=== PATIENT | male | born 1965 | race Caucasian/White ===

== ENCOUNTER 2016-10-05 16:25 | Emergency (ER) | payer OTHER, MEDICAID ==
[~2016-10-05] VITALS: Ht 188 cm; Wt 100.0 kg
[2016-10-05] MEDS ORDERED: LEVO25TA4 PO (17:00)
[2016-10-05] MEDS ORDERED: METF500T4 PO (17:00)
[2016-10-05] MEDS ORDERED: ATEN25 PO (17:00)
[2016-10-05] MEDS ORDERED: QUET25TA PO (17:00)
[2016-10-05] MEDS ORDERED: DIVA125T PO (17:00)
[2016-10-05 17:36] LABS: BASOPHILS % (AUTO) 0.5 % (0.0-2.0); HEMATOCRIT 41.5 % (41-53); HEMOGLOBIN 14.6 g/dL (13.5-17.5); LYMPHOCYTES # (AUTO) 1.7 K/uL (1.0-4.8); LYMPHOCYTES % (AUTO) 28.2 % (22.0-44.0); MEAN CORPUSCULAR HGB CONC 35.1 G/dL (31.0-37.0); MEAN CORPUSCULAR VOLUME 94 fL (80-100); MONOCYTES # (AUTO) 0.5 K/uL (0.1-1.0); MONOCYTES % (AUTO) 8.7 % (2.0-9.0); NEUTROPHILS # (AUTO) 3.7 K/uL (1.8-7.7); NEUTROPHILS % (AUTO) 60.6 % (40.0-70.0); PLATELET COUNT (AUTO) 181 K/uL (150-450); RED BLOOD CELL COUNT(AUTO) 4.41 MIL/uL (4.50-5.90); RED CELL DISTRIBUTION WIDTH 13.5 % (11.5-14.5)
[2016-10-05 17:45] LABS: ANION GAP 10 mmol/L (8-16); CARBON DIOXIDE 25 mmol/L (22-29); CHLORIDE 94 mmol/L (98-107); CREATININE 0.88 mg/dL (0.60-1.30); GLOMERULAR FILTR. RATE CALC > 60 mL/min (>60); POTASSIUM 4.2 mmol/L (3.5-5.1); SODIUM SERUM 129 mmol/L (136-145); UREA NITROGEN, BLOOD 10 mg/dL (7-18)
[2016-10-05 17:51] LABS: ALANINE AMINOTRANSFERASE 13 U/L (12-78); ALBUMIN 3.5 g/dL (3.4-5.0); ASPARTATE AMINOTRANSFERASE 11 U/L (15-37); BILIRUBIN,TOTAL 0.4 mg/dL (0.1-1.0); TOTAL PROTEIN, SERUM 6.8 g/dL (6.4-8.2)
[2016-10-05] MEDS ORDERED: SODIUM CHLORIDE 0.9% 1,000 ML IV ONE (18:00)
[2016-10-05 19:13] VITALS: BP 131/77
== END 2016-10-05 20:51 | disposition home or self-care (01) ==
LOC: EMS 16:29
DX: F31.9 Bipolar disorder, unspecified (principal); M25.551 Pain in right hip; G89.29 Other chronic pain; E11.9 Type 2 diabetes mellitus without complications; I10 Essential (primary) hypertension; E03.9 Hypothyroidism, unspecified; Z88.8 Allergy status to other drugs, medicaments and biological substances
CPT/HCPCS: 36415; 80053; 83690; 84484; 85025; 96360; 99285; G0480; J7030

== ENCOUNTER 2017-04-17 11:12 | Inpatient (IN) | payer OTHER, MEDICAID ==
[~2017-04-17] VITALS: Ht 188 cm; Wt 89.3 kg
[~2017-04-17 11:12] MED LIST: ATEN25TA PO; DIVA125T PO; LEVO25TA4 PO; METF500T4 PO; QUET25TA PO
[2017-04-17] MEDS ORDERED: LISI-661 PO (11:34)
[2017-04-17] MEDS ORDERED: BENZ2TAB10 PO (11:34)
[2017-04-17] MEDS ORDERED: OLAN10TA3 PO (11:34)
[2017-04-17] MEDS ORDERED: PALI6 PO (11:34)
[2017-04-17] MEDS ORDERED: [UNRECOGNIZED DRUG - CODE] TP (11:34)
[2017-04-17 11:54] LABS: BASOPHILS # (AUTO) 0.03 K/uL (0.00-0.20); BASOPHILS % (AUTO) 0.6 % (0.0-2.0); EOSINOPHILS # (AUTO) 0.03 K/uL (0.00-0.70); EOSINOPHILS % (AUTO) 0.46 % (1.0-6.0); HEMATOCRIT 41.3 % (41-53); HEMOGLOBIN 14.4 g/dL (13.5-17.5); LYMPHOCYTES # (AUTO) 0.9 K/uL (1.0-4.8); LYMPHOCYTES % (AUTO) 15.5 % (22.0-44.0); MEAN CORPUSCULAR HEMOGLOBIN 33.6 pg (26.0-34.0); MEAN CORPUSCULAR HGB CONC 34.9 G/dL (31.0-37.0); MEAN CORPUSCULAR VOLUME 96 fL (80-100); MONOCYTES # (AUTO) 0.5 K/uL (0.1-1.0); MONOCYTES % (AUTO) 8.1 % (2.0-9.0); NEUTROPHILS # (AUTO) 4.3 K/uL (1.8-7.7); NEUTROPHILS % (AUTO) 75.4 % (40.0-70.0); PLATELET COUNT (AUTO) 136 K/uL (150-450); RED BLOOD CELL COUNT(AUTO) 4.28 MIL/uL (4.50-5.90); RED CELL DISTRIBUTION WIDTH 13.3 % (11.5-14.5)
[2017-04-17 12:09] LABS: ALANINE AMINOTRANSFERASE 19 U/L (12-78); ALBUMIN 3.6 g/dL (3.4-5.0); ALKALINE PHOSPHATASE 58 U/L (46-116); ANION GAP 10 mmol/L (8-16); ASPARTATE AMINOTRANSFERASE 21 U/L (15-37); BILIRUBIN,TOTAL 0.7 mg/dL (0.1-1.0); CALCIUM, TOTAL 8.8 mg/dL (8.8-10.5); CARBON DIOXIDE 24 mmol/L (22-29); CHLORIDE 91 mmol/L (98-107); CREATININE 0.62 mg/dL (0.60-1.30); GLOMERULAR FILTR. RATE CALC > 60 mL/min (>60); GLUCOSE,RANDOM 126 mg/dL (70-110); POTASSIUM 4.2 mmol/L (3.5-5.1); SODIUM SERUM 125 mmol/L (136-145); TOTAL PROTEIN, SERUM 7.3 g/dL (6.4-8.2); UREA NITROGEN, BLOOD 10 mg/dL (7-18)
[2017-04-17 12:24] LABS: AMPHET/METH SCREEN,URINE NEGATIVE (NEGATIVE); BARBITURATE SCREEN, URINE NEGATIVE (NEGATIVE); BENZODIAZEPINES SCREEN,URINE NEGATIVE (NEGATIVE); CANNABINOID SCREEN,URINE NEGATIVE (NEGATIVE); COCAINE SCREEN,URINE NEGATIVE (NEGATIVE); METHADONE SCREEN, URINE NEGATIVE (NEGATIVE); OPIATE SCREEN,URINE NEGATIVE (NEGATIVE)
[2017-04-17 12:25] LABS: PHENCYCLIDINE SCREEN,URINE NEGATIVE (NEGATIVE)
[2017-04-17] MEDS ORDERED: SODIUM CHLORIDE 1 GM TABLET PO ONE (13:00)
[2017-04-17] MEDS ORDERED: ZOLPIDEM TARTRATE 10 MG TABLET PO PRN (14:00)
[2017-04-17] MEDS ORDERED: LORazepam 2 MG TABLET PO PRN (14:00)
[2017-04-17] MEDS ORDERED: OLANZapine 5 MG RAPDIS TABLET PO PRN (14:00)
[2017-04-17] MEDS ORDERED: LORazepam 2 MG TABLET PO ONE (14:15)
[2017-04-17] MEDS ORDERED: OLANZapine 5 MG TABLET PO ONE (14:15)
[2017-04-17 16:00] VITALS: BP 123/73
[2017-04-17 17:12] LABS: GLUCOMETER DEV NAME(LOC) 3EX 1; GLUCOSE,POINT OF CARE 151 MG/DL (70-110)
[2017-04-17] MEDS: OLANZapine 10 MG TABLET PO SCH (20:50)
[2017-04-17] MEDS ORDERED: BENZTROPINE MESYLATE 2 MG TABLET PO SCH (21:00)
[2017-04-17] MEDS: BENZTROPINE MESYLATE 1 MG TABLET PO SCH (21:01)
[2017-04-18 06:30] VITALS: BP 147/97
[2017-04-18 07:00] LABS: CHOL/HDL RATIO 3.3 (4.2-7.3)
[2017-04-18 08:44] VITALS: BP 126/83
[2017-04-18] MEDS: DIVALPROEX SODIUM 250 MG ER TABLET PO SCH ×2 (09:13→17:08)
[2017-04-18] MEDS ORDERED: ACETAMINOPHEN 325 MG TABLET PO PRN (10:00)
[2017-04-18] MEDS ORDERED: ALBUTEROL SULFATE HFA 90 MCG/PUFF 8 GM INHALER IH PRN (10:00)
[2017-04-18] MEDS ORDERED: PETROLATUM,WHITE 71 GM JELLY TP PRN (10:00)
[2017-04-18] MEDS ORDERED: MAG HYDROX/AL HYDROX/SIMETH ES 30 ML SUSPENSION UDCUP PO PRN (10:00)
[2017-04-18] MEDS ORDERED: ONDANSETRON HCL 4 MG TABLET PO PRN (10:00)
[2017-04-18] MEDS ORDERED: LOPERAMIDE HCL 2 MG CAPSULE PO PRN (10:00)
[2017-04-18] MEDS ORDERED: CloNIDine HCL 0.1 MG TABLET PO PRN (10:00)
[2017-04-18] MEDS ORDERED: MAGNESIUM HYDROXIDE SUSPENSION 30 ML UDCUP PO PRN (10:00)
[2017-04-18] MEDS ORDERED: DEXTROSE 50%-WATER 25 GM/50 ML SYRINGE IVP PRN (10:00)
[2017-04-18] MEDS ORDERED: BACITRACIN 28.4 GM OINTMENT TP PRN (10:00)
[2017-04-18] MEDS ORDERED: IBUPROFEN 600 MG TABLET PO PRN (10:00)
[2017-04-18] MEDS ORDERED: BENZOCAINE/MENTHOL LOZENGE MM PRN (10:00)
[2017-04-18] MEDS ORDERED: BENZOCAINE/MENTHOL LOZENGE [8 LOZENGES/PACKET] MM PRN (10:04)
[2017-04-18 11:57] LABS: GLUCOMETER DEV NAME(LOC) 3EX 1; GLUCOSE,POINT OF CARE 96 MG/DL (70-110)
[2017-04-18] MEDS: SODIUM CHLORIDE 1 GM TABLET PO SCH ×2 (12:48→17:08)
[2017-04-18 16:00] VITALS: BP 139/67
[2017-04-18 17:02] LABS: GLUCOMETER DEV NAME(LOC) 3EX 1; GLUCOSE,POINT OF CARE 136 MG/DL (70-110)
[2017-04-18] MEDS: INSULIN ASPART 100 UNITS/ML SQ PRN (17:07)
[2017-04-18] MEDS: MetFORMIN HCL 500 MG TABLET PO SCH (17:19)
[2017-04-18] MEDS: BENZTROPINE MESYLATE 1 MG TABLET PO SCH (20:50)
[2017-04-18] MEDS: OLANZapine 10 MG TABLET PO SCH (20:51)
[2017-04-19 05:32] LABS: GLUCOMETER DEV NAME(LOC) 3EI B; GLUCOSE,POINT OF CARE 104 MG/DL (70-110)
[2017-04-19 06:04] VITALS: BP 126/83
[2017-04-19 07:01] LABS: HEMOGLOBIN A1C 5.3 % (4.5-6.2)
[2017-04-19 07:10] LABS: POTASSIUM 4.3 mmol/L (3.5-5.1); THYROID STIMULATING HORMONE 12.73 uIU/mL (0.36-3.74)
[2017-04-19] MEDS: LEVOTHYROXINE SODIUM 25 MCG TABLET PO SCH (07:10)
[2017-04-19] MEDS: MetFORMIN HCL 500 MG TABLET PO SCH ×2 (07:10→17:41)
[2017-04-19 08:56] VITALS: BP 145/87
[2017-04-19] MEDS: DOCUSATE SODIUM 100 MG CAPSULE PO SCH (09:28)
[2017-04-19] MEDS: SODIUM CHLORIDE 1 GM TABLET PO SCH ×3 (09:29→16:46)
[2017-04-19] MEDS: LISINOPRIL 10 MG TABLET PO SCH (09:29)
[2017-04-19] MEDS: DIVALPROEX SODIUM 250 MG ER TABLET PO SCH ×2 (09:29→16:46)
[2017-04-19] MEDS: OMEPRAZOLE 20 MG CAPSULE PO SCH (09:32)
[2017-04-19] MEDS ORDERED: SODIUM CHLORIDE 1 GM TABLET PO ONE (11:15)
[2017-04-19] MEDS: INSULIN ASPART 100 UNITS/ML SQ PRN (11:50)
[2017-04-19 11:53] LABS: GLUCOMETER DEV NAME(LOC) 3EX 1; GLUCOSE,POINT OF CARE 88 MG/DL (70-110)
[2017-04-19 16:52] LABS: GLUCOMETER DEV NAME(LOC) 3EX 1; GLUCOSE,POINT OF CARE 111 MG/DL (70-110)
[2017-04-19 17:00] VITALS: BP 136/82
[2017-04-19] MEDS: OLANZapine 10 MG TABLET PO SCH (20:29)
[2017-04-19] MEDS: BENZTROPINE MESYLATE 1 MG TABLET PO SCH (20:31)
[2017-04-19 20:33] LABS: GLUCOMETER DEV NAME(LOC) 3EX 1; GLUCOSE,POINT OF CARE 130 MG/DL (70-110)
[2017-04-20 06:09] LABS: GLUCOMETER DEV NAME(LOC) 3EI B; GLUCOSE,POINT OF CARE 116 MG/DL (70-110)
[2017-04-20 06:25] VITALS: BP 127/76
[2017-04-20] MEDS: LEVOTHYROXINE SODIUM 25 MCG TABLET PO SCH (06:51)
[2017-04-20 06:58] LABS: SODIUM SERUM 128 mmol/L (136-145); VALPROIC ACID 25 mcg/mL (50-100)
[2017-04-20] MEDS: INSULIN ASPART 100 UNITS/ML SQ PRN (07:02)
[2017-04-20] MEDS: MetFORMIN HCL 500 MG TABLET PO SCH ×2 (07:03→17:43)
[2017-04-20] MEDS: DOCUSATE SODIUM 100 MG CAPSULE PO SCH (10:02)
[2017-04-20] MEDS: DIVALPROEX SODIUM 250 MG ER TABLET PO SCH ×2 (10:03→16:40)
[2017-04-20] MEDS: LISINOPRIL 10 MG TABLET PO SCH (10:03)
[2017-04-20] MEDS: OMEPRAZOLE 20 MG CAPSULE PO SCH (10:03)
[2017-04-20] MEDS: CHOLECALCIFEROL (VIT D3) 1,000 UNITS TABLET PO SCH (10:03)
[2017-04-20] MEDS: SODIUM CHLORIDE 1 GM TABLET PO SCH ×3 (10:04→16:40)
[2017-04-20 10:21] VITALS: BP 128/89
[2017-04-20 11:23] LABS: GLUCOMETER DEV NAME(LOC) 3EX 1; GLUCOSE,POINT OF CARE 112 MG/DL (70-110)
[2017-04-20 16:47] LABS: GLUCOMETER DEV NAME(LOC) 3EX 1; GLUCOSE,POINT OF CARE 92 MG/DL (70-110)
[2017-04-20 17:38] VITALS: BP 147/93
[2017-04-20] MEDS: BENZTROPINE MESYLATE 1 MG TABLET PO SCH (20:28)
[2017-04-20] MEDS: OLANZapine 10 MG TABLET PO SCH (20:28)
[2017-04-20 20:42] LABS: GLUCOMETER DEV NAME(LOC) 3EX 1; GLUCOSE,POINT OF CARE 108 MG/DL (70-110)
[2017-04-21 05:52] VITALS: BP 129/82
[2017-04-21 06:08] LABS: GLUCOMETER DEV NAME(LOC) 3EI B; GLUCOSE,POINT OF CARE 98 MG/DL (70-110)
[2017-04-21] MEDS: LEVOTHYROXINE SODIUM 25 MCG TABLET PO SCH (07:05)
[2017-04-21] MEDS: MetFORMIN HCL 500 MG TABLET PO SCH ×2 (07:05→17:35)
[2017-04-21 08:52] VITALS: BP 125/80
[2017-04-21] MEDS: CHOLECALCIFEROL (VIT D3) 1,000 UNITS TABLET PO SCH (09:00)
[2017-04-21] MEDS: OMEPRAZOLE 20 MG CAPSULE PO SCH (09:00)
[2017-04-21] MEDS: LISINOPRIL 10 MG TABLET PO SCH (09:00)
[2017-04-21] MEDS: DIVALPROEX SODIUM 250 MG ER TABLET PO SCH ×2 (09:00→16:33)
[2017-04-21] MEDS: SODIUM CHLORIDE 1 GM TABLET PO SCH ×3 (09:00→16:33)
[2017-04-21] MEDS: DOCUSATE SODIUM 100 MG CAPSULE PO SCH (09:01)
[2017-04-21 11:32] LABS: GLUCOMETER DEV NAME(LOC) 3EX 1; GLUCOSE,POINT OF CARE 104 MG/DL (70-110)
[2017-04-21 16:37] LABS: GLUCOMETER DEV NAME(LOC) 3EX 1; GLUCOSE,POINT OF CARE 111 MG/DL (70-110)
[2017-04-21 19:07] VITALS: BP 146/71
[2017-04-21] MEDS: BENZTROPINE MESYLATE 1 MG TABLET PO SCH (20:07)
[2017-04-21] MEDS: OLANZapine 10 MG TABLET PO SCH (20:07)
[2017-04-21 20:12] LABS: GLUCOMETER DEV NAME(LOC) 3EX 1; GLUCOSE,POINT OF CARE 140 MG/DL (70-110)
[2017-04-22 05:43] LABS: GLUCOMETER DEV NAME(LOC) 3EI B; GLUCOSE,POINT OF CARE 99 MG/DL (70-110)
[2017-04-22] MEDS: MetFORMIN HCL 500 MG TABLET PO SCH ×2 (06:55→16:37)
[2017-04-22] MEDS: LEVOTHYROXINE SODIUM 25 MCG TABLET PO SCH (06:55)
[2017-04-22 08:00] VITALS: BP 120/88
[2017-04-22] MEDS: CHOLECALCIFEROL (VIT D3) 1,000 UNITS TABLET PO SCH (08:58)
[2017-04-22] MEDS: SODIUM CHLORIDE 1 GM TABLET PO SCH ×3 (08:58→16:37)
[2017-04-22] MEDS: DOCUSATE SODIUM 100 MG CAPSULE PO SCH (08:58)
[2017-04-22] MEDS: LISINOPRIL 10 MG TABLET PO SCH (08:58)
[2017-04-22] MEDS: DIVALPROEX SODIUM 250 MG ER TABLET PO SCH ×2 (08:58→16:37)
[2017-04-22] MEDS: OMEPRAZOLE 20 MG CAPSULE PO SCH (08:59)
[2017-04-22 11:38] LABS: GLUCOMETER DEV NAME(LOC) 3EX 1; GLUCOSE,POINT OF CARE 92 MG/DL (70-110)
[2017-04-22 16:58] LABS: GLUCOMETER DEV NAME(LOC) 3EX 1; GLUCOSE,POINT OF CARE 125 MG/DL (70-110)
[2017-04-22 17:02] VITALS: BP 135/88
[2017-04-22 20:48] LABS: GLUCOMETER DEV NAME(LOC) 3EX 1; GLUCOSE,POINT OF CARE 150 MG/DL (70-110)
[2017-04-22] MEDS: OLANZapine 10 MG TABLET PO SCH (21:08)
[2017-04-22] MEDS: BENZTROPINE MESYLATE 1 MG TABLET PO SCH (21:08)
[2017-04-23 02:54] VITALS: BP 130/84
[2017-04-23 06:04] LABS: GLUCOMETER DEV NAME(LOC) 3EX 1; GLUCOSE,POINT OF CARE 103 MG/DL (70-110)
[2017-04-23] MEDS: MetFORMIN HCL 500 MG TABLET PO SCH ×2 (07:07→17:28)
[2017-04-23] MEDS: LEVOTHYROXINE SODIUM 100 MCG TABLET PO SCH (07:07)
[2017-04-23 07:12] LABS: THYROID STIMULATING HORMONE 9.79 uIU/mL (0.36-3.74)
[2017-04-23] MEDS: OMEPRAZOLE 20 MG CAPSULE PO SCH (08:22)
[2017-04-23] MEDS: SODIUM CHLORIDE 1 GM TABLET PO SCH ×3 (08:22→16:14)
[2017-04-23] MEDS: DOCUSATE SODIUM 100 MG CAPSULE PO SCH (08:22)
[2017-04-23] MEDS: CHOLECALCIFEROL (VIT D3) 1,000 UNITS TABLET PO SCH (08:22)
[2017-04-23] MEDS: DIVALPROEX SODIUM 250 MG ER TABLET PO SCH ×2 (08:23→16:14)
[2017-04-23] MEDS: LISINOPRIL 10 MG TABLET PO SCH (08:24)
[2017-04-23 09:00] VITALS: BP 166/90
[2017-04-23 11:38] LABS: GLUCOMETER DEV NAME(LOC) 3EX 1; GLUCOSE,POINT OF CARE 98 MG/DL (70-110)
[2017-04-23] MEDS: INSULIN ASPART 100 UNITS/ML SQ PRN (17:07)
[2017-04-23 17:23] LABS: GLUCOMETER DEV NAME(LOC) 3EX 1; GLUCOSE,POINT OF CARE 170 MG/DL (70-110)
[2017-04-23 19:32] VITALS: BP 134/76
[2017-04-23] MEDS: OLANZapine 10 MG TABLET PO SCH (20:24)
[2017-04-23] MEDS: BENZTROPINE MESYLATE 1 MG TABLET PO SCH (20:24)
[2017-04-23 21:23] LABS: GLUCOMETER DEV NAME(LOC) 3EX 1; GLUCOSE,POINT OF CARE 134 MG/DL (70-110)
[2017-04-24 05:33] LABS: GLUCOMETER DEV NAME(LOC) 3EI B; GLUCOSE,POINT OF CARE 99 MG/DL (70-110)
[2017-04-24] MEDS: MetFORMIN HCL 500 MG TABLET PO SCH ×2 (07:06→16:46)
[2017-04-24] MEDS: LEVOTHYROXINE SODIUM 100 MCG TABLET PO SCH (07:06)
[2017-04-24] MEDS: DIVALPROEX SODIUM 250 MG ER TABLET PO SCH ×2 (08:22→16:46)
[2017-04-24] MEDS: DOCUSATE SODIUM 100 MG CAPSULE PO SCH (08:22)
[2017-04-24] MEDS: SODIUM CHLORIDE 1 GM TABLET PO SCH ×3 (08:22→16:46)
[2017-04-24] MEDS: OMEPRAZOLE 20 MG CAPSULE PO SCH (08:23)
[2017-04-24] MEDS: LISINOPRIL 10 MG TABLET PO SCH (08:23)
[2017-04-24] MEDS: CHOLECALCIFEROL (VIT D3) 1,000 UNITS TABLET PO SCH (08:23)
[2017-04-24 09:15] VITALS: BP 104/76
[2017-04-24 16:53] LABS: GLUCOMETER DEV NAME(LOC) 3EX 1; GLUCOSE,POINT OF CARE 152 MG/DL (70-110)
[2017-04-24 16:55] VITALS: BP 142/88
[2017-04-24] MEDS: INSULIN ASPART 100 UNITS/ML SQ PRN (18:01)
[2017-04-24] MEDS: OLANZapine 10 MG TABLET PO SCH (20:31)
[2017-04-24] MEDS: BENZTROPINE MESYLATE 1 MG TABLET PO SCH (20:31)
[2017-04-25 05:28] LABS: GLUCOMETER DEV NAME(LOC) 3EI B; GLUCOSE,POINT OF CARE 89 MG/DL (70-110)
[2017-04-25] MEDS: MetFORMIN HCL 500 MG TABLET PO SCH ×2 (07:03→16:50)
[2017-04-25] MEDS: LEVOTHYROXINE SODIUM 100 MCG TABLET PO SCH (07:03)
[2017-04-25 08:10] VITALS: BP 132/79
[2017-04-25] MEDS: CHOLECALCIFEROL (VIT D3) 1,000 UNITS TABLET PO SCH (08:45)
[2017-04-25] MEDS: DIVALPROEX SODIUM 250 MG ER TABLET PO SCH ×2 (08:45→16:50)
[2017-04-25] MEDS: DOCUSATE SODIUM 100 MG CAPSULE PO SCH (08:45)
[2017-04-25] MEDS: OMEPRAZOLE 20 MG CAPSULE PO SCH (08:45)
[2017-04-25] MEDS: SODIUM CHLORIDE 1 GM TABLET PO SCH ×3 (08:45→16:50)
[2017-04-25] MEDS: LISINOPRIL 10 MG TABLET PO SCH (08:46)
[2017-04-25 16:20] VITALS: BP 144/88
[2017-04-25 17:02] LABS: GLUCOMETER DEV NAME(LOC) 3EX 1; GLUCOSE,POINT OF CARE 129 MG/DL (70-110)
[2017-04-25] MEDS: OLANZapine 10 MG TABLET PO SCH (20:28)
[2017-04-25] MEDS: BENZTROPINE MESYLATE 1 MG TABLET PO SCH (20:28)
[2017-04-25 20:38] LABS: GLUCOMETER DEV NAME(LOC) 3EX 1; GLUCOSE,POINT OF CARE 121 MG/DL (70-110)
[2017-04-26 06:33] LABS: BASOPHILS % (AUTO) 0.6 % (0.0-2.0); EOSINOPHILS % (AUTO) 2.9 % (1.0-6.0); HEMATOCRIT 38.5 % (41-53); HEMOGLOBIN 13.7 g/dL (13.5-17.5); LYMPHOCYTES # (AUTO) 1.4 K/uL (1.0-4.8); LYMPHOCYTES % (AUTO) 25.2 % (22.0-44.0); MEAN CORPUSCULAR HEMOGLOBIN 33.1 pg (26.0-34.0); MEAN CORPUSCULAR HGB CONC 35.5 G/dL (31.0-37.0); MEAN CORPUSCULAR VOLUME 93 fL (80-100); MONOCYTES # (AUTO) 0.6 K/uL (0.1-1.0); MONOCYTES % (AUTO) 10.3 % (2.0-9.0); NEUTROPHILS # (AUTO) 3.4 K/uL (1.8-7.7); PLATELET COUNT (AUTO) 176 K/uL (150-450); RED BLOOD CELL COUNT(AUTO) 4.13 MIL/uL (4.50-5.90); RED CELL DISTRIBUTION WIDTH 13.1 % (11.5-14.5)
[2017-04-26] MEDS: MetFORMIN HCL 500 MG TABLET PO SCH ×2 (07:07→16:42)
[2017-04-26] MEDS: LEVOTHYROXINE SODIUM 100 MCG TABLET PO SCH (07:07)
[2017-04-26 08:05] LABS: ANION GAP 7 mmol/L (8-16); CALCIUM, TOTAL 8.7 mg/dL (8.8-10.5); CARBON DIOXIDE 27 mmol/L (22-29); CHLORIDE 99 mmol/L (98-107); CREATININE 0.52 mg/dL (0.60-1.30); GLOMERULAR FILTR. RATE CALC > 60 mL/min (>60); GLUCOSE,RANDOM 108 mg/dL (70-110); PHOSPHORUS 3.9 mg/dL (2.5-4.9); POTASSIUM 4.2 mmol/L (3.5-5.1); SODIUM SERUM 133 mmol/L (136-145); UREA NITROGEN, BLOOD 11 mg/dL (7-18)
[2017-04-26 09:22] VITALS: BP 124/84
[2017-04-26] MEDS: SODIUM CHLORIDE 1 GM TABLET PO SCH ×3 (09:26→16:42)
[2017-04-26] MEDS: DOCUSATE SODIUM 100 MG CAPSULE PO SCH (09:26)
[2017-04-26] MEDS: OMEPRAZOLE 20 MG CAPSULE PO SCH (09:27)
[2017-04-26] MEDS: LISINOPRIL 10 MG TABLET PO SCH (09:27)
[2017-04-26] MEDS: DIVALPROEX SODIUM 250 MG ER TABLET PO SCH ×2 (09:27→16:42)
[2017-04-26] MEDS: CHOLECALCIFEROL (VIT D3) 1,000 UNITS TABLET PO SCH (09:27)
[2017-04-26 16:53] LABS: GLUCOMETER DEV NAME(LOC) 3EX 1; GLUCOSE,POINT OF CARE 142 MG/DL (70-110)
[2017-04-26 16:55] VITALS: BP 132/80
[2017-04-26] MEDS: INSULIN ASPART 100 UNITS/ML SQ PRN (17:16)
[2017-04-26] MEDS: BENZTROPINE MESYLATE 1 MG TABLET PO SCH (20:14)
[2017-04-26] MEDS: OLANZapine 10 MG TABLET PO SCH (20:15)
[2017-04-27] MEDS: MetFORMIN HCL 500 MG TABLET PO SCH ×2 (06:22→17:21)
[2017-04-27] MEDS: LEVOTHYROXINE SODIUM 100 MCG TABLET PO SCH (06:22)
[2017-04-27 07:30] LABS: ALANINE AMINOTRANSFERASE 17 U/L (12-78); ALBUMIN 3.4 g/dL (3.4-5.0); ALKALINE PHOSPHATASE 75 U/L (46-116); ANION GAP 5 mmol/L (8-16); ASPARTATE AMINOTRANSFERASE 17 U/L (15-37); BILIRUBIN,TOTAL 0.4 mg/dL (0.1-1.0); CARBON DIOXIDE 31 mmol/L (22-29); CHLORIDE 101 mmol/L (98-107); CREATININE 0.65 mg/dL (0.60-1.30); GLOMERULAR FILTR. RATE CALC > 60 mL/min (>60); GLUCOSE,RANDOM 104 mg/dL (70-110); POTASSIUM 4.8 mmol/L (3.5-5.1); SODIUM SERUM 137 mmol/L (136-145); TOTAL PROTEIN, SERUM 6.6 g/dL (6.4-8.2); UREA NITROGEN, BLOOD 9 mg/dL (7-18)
[2017-04-27 08:40] VITALS: BP 125/80
[2017-04-27] MEDS: OMEPRAZOLE 20 MG CAPSULE PO SCH (08:41)
[2017-04-27] MEDS: CHOLECALCIFEROL (VIT D3) 1,000 UNITS TABLET PO SCH (08:41)
[2017-04-27] MEDS: DOCUSATE SODIUM 100 MG CAPSULE PO SCH (08:41)
[2017-04-27] MEDS: DIVALPROEX SODIUM 250 MG ER TABLET PO SCH ×2 (08:42→16:02)
[2017-04-27] MEDS: SODIUM CHLORIDE 1 GM TABLET PO SCH ×3 (08:42→16:02)
[2017-04-27] MEDS: LISINOPRIL 10 MG TABLET PO SCH (08:42)
[2017-04-27 16:23] LABS: GLUCOMETER DEV NAME(LOC) 3EX 1; GLUCOSE,POINT OF CARE 123 MG/DL (70-110)
[2017-04-27 17:18] VITALS: BP 126/80
[2017-04-27] MEDS: OLANZapine 10 MG TABLET PO SCH (20:52)
[2017-04-27] MEDS: BENZTROPINE MESYLATE 1 MG TABLET PO SCH (20:53)
[2017-04-28] MEDS: MetFORMIN HCL 500 MG TABLET PO SCH ×2 (06:57→17:24)
[2017-04-28] MEDS: LEVOTHYROXINE SODIUM 100 MCG TABLET PO SCH (06:57)
[2017-04-28 08:00] VITALS: BP 117/81
[2017-04-28] MEDS: DOCUSATE SODIUM 100 MG CAPSULE PO SCH (08:03)
[2017-04-28] MEDS: LISINOPRIL 10 MG TABLET PO SCH (08:03)
[2017-04-28] MEDS: DIVALPROEX SODIUM 250 MG ER TABLET PO SCH ×2 (08:03→16:25)
[2017-04-28] MEDS: OMEPRAZOLE 20 MG CAPSULE PO SCH (08:03)
[2017-04-28] MEDS: CHOLECALCIFEROL (VIT D3) 1,000 UNITS TABLET PO SCH (08:03)
[2017-04-28] MEDS: SODIUM CHLORIDE 1 GM TABLET PO SCH ×3 (08:03→16:25)
[2017-04-28 16:38] LABS: GLUCOMETER DEV NAME(LOC) 3EX 1; GLUCOSE,POINT OF CARE 141 MG/DL (70-110)
[2017-04-28 16:54] VITALS: BP 149/81
[2017-04-28] MEDS: INSULIN ASPART 100 UNITS/ML SQ PRN (17:16)
[2017-04-28] MEDS: BENZTROPINE MESYLATE 1 MG TABLET PO SCH (20:41)
[2017-04-28] MEDS: OLANZapine 10 MG TABLET PO SCH (20:41)
[2017-04-29] MEDS: MetFORMIN HCL 500 MG TABLET PO SCH ×2 (06:48→17:29)
[2017-04-29] MEDS: LEVOTHYROXINE SODIUM 100 MCG TABLET PO SCH (06:48)
[2017-04-29 06:59] LABS: GLUCOMETER DEV NAME(LOC) 3EI B; GLUCOSE,POINT OF CARE 93 MG/DL (70-110)
[2017-04-29 08:15] VITALS: BP 132/84
[2017-04-29] MEDS: DOCUSATE SODIUM 100 MG CAPSULE PO SCH (08:18)
[2017-04-29] MEDS: OMEPRAZOLE 20 MG CAPSULE PO SCH (08:18)
[2017-04-29] MEDS: DIVALPROEX SODIUM 250 MG ER TABLET PO SCH ×2 (08:18→17:22)
[2017-04-29] MEDS: LISINOPRIL 10 MG TABLET PO SCH (08:18)
[2017-04-29] MEDS: CHOLECALCIFEROL (VIT D3) 1,000 UNITS TABLET PO SCH (08:18)
[2017-04-29] MEDS: SODIUM CHLORIDE 1 GM TABLET PO SCH ×3 (08:18→17:23)
[2017-04-29 16:39] VITALS: BP 131/86
[2017-04-29 17:18] LABS: GLUCOMETER DEV NAME(LOC) 3EX 1; GLUCOSE,POINT OF CARE 96 MG/DL (70-110)
[2017-04-29] MEDS: BENZTROPINE MESYLATE 1 MG TABLET PO SCH (20:52)
[2017-04-29] MEDS: OLANZapine 10 MG TABLET PO SCH (20:52)
[2017-04-30 06:14] LABS: GLUCOMETER DEV NAME(LOC) 3EI B; GLUCOSE,POINT OF CARE 101 MG/DL (70-110)
[2017-04-30 06:29] VITALS: BP 135/79
[2017-04-30] MEDS: LEVOTHYROXINE SODIUM 100 MCG TABLET PO SCH (07:10)
[2017-04-30] MEDS: MetFORMIN HCL 500 MG TABLET PO SCH ×2 (07:10→17:16)
[2017-04-30] MEDS: OMEPRAZOLE 20 MG CAPSULE PO SCH (09:00)
[2017-04-30] MEDS: DOCUSATE SODIUM 100 MG CAPSULE PO SCH (09:00)
[2017-04-30] MEDS: CHOLECALCIFEROL (VIT D3) 1,000 UNITS TABLET PO SCH (09:00)
[2017-04-30] MEDS: SODIUM CHLORIDE 1 GM TABLET PO SCH ×2 (09:00→16:45)
[2017-04-30] MEDS: LISINOPRIL 10 MG TABLET PO SCH (09:00)
[2017-04-30] MEDS: DIVALPROEX SODIUM 250 MG ER TABLET PO SCH ×2 (09:00→16:45)
[2017-04-30 10:03] VITALS: BP 112/78
[2017-04-30 16:54] LABS: GLUCOMETER DEV NAME(LOC) 3EX 1; GLUCOSE,POINT OF CARE 154 MG/DL (70-110)
[2017-04-30] MEDS: INSULIN ASPART 100 UNITS/ML SQ PRN (17:10)
[2017-04-30 17:45] VITALS: BP 125/72
[2017-04-30] MEDS: OLANZapine 10 MG TABLET PO SCH (20:18)
[2017-04-30] MEDS: BENZTROPINE MESYLATE 1 MG TABLET PO SCH (20:18)
[2017-05-01 05:57] LABS: GLUCOMETER DEV NAME(LOC) 3EI B; GLUCOSE,POINT OF CARE 100 MG/DL (70-110)
[2017-05-01] MEDS: LEVOTHYROXINE SODIUM 100 MCG TABLET PO SCH (06:57)
[2017-05-01] MEDS: MetFORMIN HCL 500 MG TABLET PO SCH ×2 (06:58→17:49)
[2017-05-01] MEDS: SODIUM CHLORIDE 1 GM TABLET PO SCH ×2 (08:58→16:15)
[2017-05-01] MEDS: OMEPRAZOLE 20 MG CAPSULE PO SCH (08:58)
[2017-05-01] MEDS: DIVALPROEX SODIUM 500 MG ER TABLET PO SCH ×2 (08:58→16:16)
[2017-05-01] MEDS: LISINOPRIL 10 MG TABLET PO SCH (08:58)
[2017-05-01] MEDS: DOCUSATE SODIUM 100 MG CAPSULE PO SCH (08:58)
[2017-05-01] MEDS: CHOLECALCIFEROL (VIT D3) 1,000 UNITS TABLET PO SCH (08:58)
[2017-05-01 09:04] VITALS: BP 123/75
[2017-05-01 16:27] LABS: GLUCOMETER DEV NAME(LOC) 3EX 1; GLUCOSE,POINT OF CARE 119 MG/DL (70-110)
[2017-05-01 16:56] VITALS: BP 132/73
[2017-05-01] MEDS: BENZTROPINE MESYLATE 1 MG TABLET PO SCH (20:19)
[2017-05-01] MEDS: OLANZapine 10 MG TABLET PO SCH (20:19)
[2017-05-02 05:03] VITALS: BP 127/81
[2017-05-02 06:33] LABS: GLUCOMETER DEV NAME(LOC) 3EI B; GLUCOSE,POINT OF CARE 104 MG/DL (70-110)
[2017-05-02] MEDS: LEVOTHYROXINE SODIUM 100 MCG TABLET PO SCH (07:02)
[2017-05-02] MEDS: MetFORMIN HCL 500 MG TABLET PO SCH ×2 (07:03→17:41)
[2017-05-02] MEDS: SODIUM CHLORIDE 1 GM TABLET PO SCH ×2 (07:56→17:41)
[2017-05-02] MEDS: OMEPRAZOLE 20 MG CAPSULE PO SCH (07:56)
[2017-05-02] MEDS: LISINOPRIL 10 MG TABLET PO SCH (07:56)
[2017-05-02] MEDS: DOCUSATE SODIUM 100 MG CAPSULE PO SCH (07:56)
[2017-05-02] MEDS: DIVALPROEX SODIUM 500 MG ER TABLET PO SCH ×2 (07:56→17:41)
[2017-05-02] MEDS: CHOLECALCIFEROL (VIT D3) 1,000 UNITS TABLET PO SCH (07:56)
[2017-05-02 09:02] VITALS: BP 139/82
[2017-05-02 16:31] VITALS: BP 139/80
[2017-05-02 16:53] LABS: GLUCOMETER DEV NAME(LOC) 3EX 1; GLUCOSE,POINT OF CARE 140 MG/DL (70-110)
[2017-05-02] MEDS: INSULIN ASPART 100 UNITS/ML SQ PRN (17:35)
[2017-05-02] MEDS: OLANZapine 10 MG TABLET PO SCH (20:34)
[2017-05-02] MEDS: BENZTROPINE MESYLATE 1 MG TABLET PO SCH (20:34)
[2017-05-03 04:05] VITALS: BP 134/90
[2017-05-03 05:32] LABS: GLUCOMETER DEV NAME(LOC) 3EI B; GLUCOSE,POINT OF CARE 99 MG/DL (70-110)
[2017-05-03] MEDS: LEVOTHYROXINE SODIUM 100 MCG TABLET PO SCH (06:55)
[2017-05-03] MEDS: MetFORMIN HCL 500 MG TABLET PO SCH (07:14)
[2017-05-03 08:33] VITALS: BP 123/74
[2017-05-03] MEDS ORDERED: DIVA500T52 PO (09:36)
[2017-05-03] MEDS ORDERED: OLAN10TA3 PO (09:37)
[2017-05-03] MEDS: DIVALPROEX SODIUM 500 MG ER TABLET PO SCH (09:39)
[2017-05-03] MEDS: DOCUSATE SODIUM 100 MG CAPSULE PO SCH (09:39)
[2017-05-03] MEDS: SODIUM CHLORIDE 1 GM TABLET PO SCH (09:39)
[2017-05-03] MEDS: LISINOPRIL 10 MG TABLET PO SCH (09:39)
[2017-05-03] MEDS: CHOLECALCIFEROL (VIT D3) 1,000 UNITS TABLET PO SCH (09:39)
[2017-05-03] MEDS: OMEPRAZOLE 20 MG CAPSULE PO SCH (09:39)
[2017-05-03] MEDS ORDERED: DSS100 PO (09:40)
[2017-05-03] MEDS ORDERED: VITAD1000 PO (09:40)
[2017-05-03] MEDS ORDERED: LEVO50TA11 PO (09:40)
[2017-05-03] MEDS ORDERED: OMEP20 PO (09:41)
[2017-05-03] MEDS ORDERED: NACL1 PO (09:41)
== END 2017-05-03 14:20 | disposition home or self-care (01) | DRG 885 ==
LOC: EMS 11:13 → 3EX 14:57
PROVIDERS: ADMIT Psychiatry & Neurology Psychiatry; ATTEND Psychiatry & Neurology Psychiatry
DX: F20.0 Paranoid schizophrenia (principal); E87.8 Other disorders of electrolyte and fluid balance, not elsewhere classified; D69.6 Thrombocytopenia, unspecified; E87.1 Hypo-osmolality and hyponatremia; E11.65 Type 2 diabetes mellitus with hyperglycemia; F29 Unspecified psychosis not due to a substance or known physiological condition; E03.9 Hypothyroidism, unspecified; K21.9 Gastro-esophageal reflux disease without esophagitis; I10 Essential (primary) hypertension; E55.9 Vitamin D deficiency, unspecified; G47.00 Insomnia, unspecified; F31.9 Bipolar disorder, unspecified; Z88.8 Allergy status to other drugs, medicaments and biological substances; Z79.84 Long term (current) use of oral hypoglycemic drugs; Z79.899 Other long term (current) drug therapy; Z88.0 Allergy status to penicillin
CPT/HCPCS: 82306; 82962; 83036; 83735; 84100; 84132; 84295; 84443; 85049; 99285; G0480